=== PATIENT | male | born 1995 | race Caucasian/White ===

== ENCOUNTER 2017-06-25 11:58 | Emergency (ER) | payer BC ==
[~2017-06-25] VITALS: Ht 190.5 cm; Wt 86.4 kg
[2017-06-25 12:01] VITALS: BP 138/89; TEMP 98.3
[2017-06-25] MEDS ORDERED: VYVANSE70 MG PO (12:09)
[2017-06-25 12:46] VITALS: PULSE 82
== END 2017-06-25 12:46 | disposition home or self-care (01) ==
LOC: COL.ER 11:58
DX: S09.90XA Unspecified injury of head, initial encounter (principal); S01.01XA Laceration without foreign body of scalp, initial encounter; F90.9 Attention-deficit hyperactivity disorder, unspecified type; F17.210 Nicotine dependence, cigarettes, uncomplicated; F12.90 Cannabis use, unspecified, uncomplicated; W22.8XXA Striking against or struck by other objects, initial encounter

== ENCOUNTER 2017-08-01 17:33 | Emergency (ER) | payer BC ==
[~2017-08-01 17:33] MED LIST: VYVANSE70 MG PO
[2017-08-01 17:35] VITALS: BP 152/73; PULSE 73; TEMP 98.2
== END 2017-08-01 17:39 | disposition home or self-care (01) ==
LOC: COL.ER 17:33
DX: Z48.02 Encounter for removal of sutures (principal)